=== PATIENT | female | born 1995 | race Two or more races ===

== ENCOUNTER 2024-02-22 08:37 | Outpatient (CLI) | payer OTHER | END 2024-02-22 08:41 | disposition home or self-care (01) | LOC: PRENATAL 08:37 | PROVIDERS: ATTEND Obstetrics & Gynecology Maternal & Fetal Medicine | DX: O26.849 Uterine size-date discrepancy, unspecified trimester (principal); O36.8199 Decreased fetal movements, unspecified trimester, other fetus; O36.60X0 Maternal care for excessive fetal growth, unspecified trimester, not applicable or unspecified; Z3A.32 32 weeks gestation of pregnancy ==

== ENCOUNTER → 2025-01-18 | Outpatient (CLI) | payer OTHER ==
[~2025-01-18] MED LIST: PRENATAL TABLE1 EAC1 PO
== END | disposition home or self-care (01) ==
LOC: PRENATAL 13:31
PROVIDERS: ATTEND Obstetrics & Gynecology Maternal & Fetal Medicine
DX: O44.00 Complete placenta previa NOS or without hemorrhage, unspecified trimester (principal); O26.849 Uterine size-date discrepancy, unspecified trimester; O26.20 Pregnancy care for patient with recurrent pregnancy loss, unspecified trimester; Z3A.20 20 weeks gestation of pregnancy

== ENCOUNTER 2025-03-14 09:04 | Outpatient (CLI) | payer OTHER | END 2025-03-14 10:00 | disposition home or self-care (01) | LOC: PRENATAL 09:04 | PROVIDERS: ATTEND Obstetrics & Gynecology Maternal & Fetal Medicine | DX: O26.849 Uterine size-date discrepancy, unspecified trimester (principal); O36.8199 Decreased fetal movements, unspecified trimester, other fetus; O26.20 Pregnancy care for patient with recurrent pregnancy loss, unspecified trimester; Z3A.27 27 weeks gestation of pregnancy ==

== ENCOUNTER 2025-04-22 15:31 | Outpatient (CLI) | payer OTHER ==
[~2025-04-22] VITALS: Ht 157.5 cm; Wt 83.0 kg
[2025-04-22 15:15] VITALS: BP 106/69
[2025-04-22] MEDS ORDERED: 0.9 % SODIUM CHLORIDE 1,000 ML IV SCH (15:45)
[2025-04-22] MEDS ORDERED: FAMOTIDINE/PF 20 MG/2 ML VIAL IV NR (15:45)
[2025-04-22 16:30] LABS: URINE APPEARANCE Clear; URINE BILIRRUBIN Negative (NEGATIVE); URINE BLOOD Negative; URINE COLOR Yellow; URINE GLUCOSE Negative (NEGATIVE); URINE LEUKOCYTE Negative; URINE NITRATE Negative; URINE PROTEIN 30 (NEGATIVE)
[2025-04-22 16:32] LABS: BASO % 0.2 % (0.1-1.2); EOS # 0.02 (0.04-0.54); EOS % 0.2 % (0.7-7.0); HEMATOCRIT 31.5 % (34.1-44.9); HEMOGLOBIN 10.2 g/dL (11.2-15.7); LYMPH # 0.99 (1.18-3.74); LYMPH % 11.8 % (19.3-53.1); MEAN CORPUSCULAR HEMOGLOBIN 24.8 pg (25.6-32.2); MONO # 0.59 (0.24-0.82); NEUT # 6.64 (1.56-6.13); NEUT % 79.4 % (34.0-71.1); PLATELET COUNT 132 K/uL (163-369); RED BLOOD COUNT 4.11 M/uL (3.93-5.22); RED CELL DISTRIBUTION WIDTH 13.8 % (11.6-14.4)
[2025-04-22 16:34] LABS: URINE BACTERIA 340.2 uL (0.0-1933); URINE RBC 3.3 uL (0.0-20.8)
[2025-04-22 16:58] LABS: URINE KETONE >=160 (NEGATIVE)
[2025-04-22 17:03] LABS: ALBUMIN 2.6 gm/dL (3.4-5.0); BILIRUBIN TOTAL 0.53 mg/dL (0.3-1.2); CALCIUM 7.9 mg/dL (8.5-10.1); CREATININE SERUM 0.47 mg/dL (0.55-1.02); GFR 155.59; GLOBULINA 3.2 G/DL (2.4-3.5); POTASSIUM 3.54 mEq/L (3.5-5.1); TOTAL PROTEIN 5.8 gm/dL (6.4-8.2)
[2025-04-22 20:39] VITALS: BP 99/60
[2025-04-22 23:17] VITALS: BP 98/62
[2025-04-23 03:59] VITALS: BP 103/61
[2025-04-23 07:30] VITALS: BP 95/58
[2025-04-23 12:12] VITALS: BP 100/60
== END 2025-04-23 12:15 | disposition home or self-care (01) ==
LOC: OBS/DEL 15:31
PROVIDERS: Obstetrics & Gynecology; ATTEND Obstetrics & Gynecology
DX: O26.893 Other specified pregnancy related conditions, third trimester (principal); Z3A.34 34 weeks gestation of pregnancy

== ENCOUNTER 2025-04-24 07:36 | Outpatient (CLI) | payer OTHER | END 2025-04-24 07:37 | disposition home or self-care (01) | LOC: PRENATAL 07:36 | PROVIDERS: ATTEND Obstetrics & Gynecology Maternal & Fetal Medicine | DX: O26.849 Uterine size-date discrepancy, unspecified trimester (principal); O36.8199 Decreased fetal movements, unspecified trimester, other fetus; O24.419 Gestational diabetes mellitus in pregnancy, unspecified control; Z3A.33 33 weeks gestation of pregnancy ==

== ENCOUNTER 2025-05-31 08:28 | Inpatient (IN) | payer OTHER ==
[~2025-05-31] VITALS: Ht 157.5 cm; Wt 84.8 kg
[2025-05-31] VITALS (10 sets, daily range): BP systolic 104–120; BP diastolic 49–72
[2025-05-31] MEDS ORDERED: RINGERS SOLUTION,LACTATED 1,000 ML IV SCH (09:00)
[2025-05-31 09:31] LABS: BASO % 0.5 % (0.1-1.2); EOS # 0.06 (0.04-0.54); EOS % 0.6 % (0.7-7.0); LYMPH # 2.16 (1.18-3.74); LYMPH % 21.8 % (19.3-53.1); MEAN PLATELET VOLUME 11.80 fl (9.4-12.4); MONO # 0.50 (0.24-0.82); MONO % 5.0 % (4.7-12.5); NEUT # 7.05 (1.56-6.13); NEUT % 71.2 % (34.0-71.1); RED CELL DISTRIBUTION WIDTH 15.6 % (11.6-14.4)
[2025-05-31 09:37] LABS: URINE APPEARANCE Cloudy; URINE BILIRRUBIN Negative (NEGATIVE); URINE BLOOD Negative; URINE COLOR Yellow; URINE GLUCOSE Negative (NEGATIVE); URINE KETONE Negative (NEGATIVE); URINE LEUKOCYTE Large; URINE NITRATE Negative; URINE PROTEIN 30 (NEGATIVE); URINE UROBILINOGEN 1.0 E.U./dl
[2025-05-31 09:40] LABS: URINE BACTERIA 6817.0 uL (0.0-1933); URINE CAST 1.46 uL (0.0-1.40); URINE EPITHELIAL CELLS 184.1 uL (0.0-38.8); URINE RBC 10.5 uL (0.0-20.8); URINE WBC 218.2 uL (0.0-23.2)
[2025-05-31 09:56] LABS: INR < 0.93
[2025-05-31] MEDS ORDERED: OXYTOCIN 20 UNITS/500ML RL PIGGYBAG IV SCH (12:00)
[2025-05-31] MEDS ORDERED: ACETAMINOPHEN 500 MG GEL..CAP PO PRN (20:00)
[2025-05-31] MEDS ORDERED: OXYTOCIN 1,000 ML IV SCH (20:00)
[2025-05-31] MEDS ORDERED: CHLORHEXIDINE GLUCONATE 120 ML BOTTLE TP SCH (20:00)
[2025-05-31] MEDS ORDERED: LIDOCAINE HCL 1% 10ML VIAL PERCUT ONE (20:15)
[2025-05-31] MEDS ORDERED: ERYTHROMYCIN BASE OPHT 1GM EACH TUBE OP ONE (20:15)
[2025-05-31 21:07] LABS: BASO % 0.2 % (0.1-1.2); EOS # 0.00 (0.04-0.54); EOS % 0.0 % (0.7-7.0); LYMPH # 1.48 (1.18-3.74); LYMPH % 10.4 % (19.3-53.1); MEAN PLATELET VOLUME 12.10 fl (9.4-12.4); MONO # 0.56 (0.24-0.82); MONO % 4.0 % (4.7-12.5); NEUT # 11.98 (1.56-6.13); NEUT % 84.6 % (34.0-71.1); RED CELL DISTRIBUTION WIDTH 15.3 % (11.6-14.4)
[2025-06-01 00:34] VITALS: BP 100/65
[2025-06-01 08:46] VITALS: BP 111/75
[2025-06-01] MEDS ORDERED: PNV,CALCIUM 72/IRON/FOLIC ACID 1 TAB TABLET PO SCH (09:00)
[2025-06-01 16:00] VITALS: BP 118/78
[2025-06-02 00:39] VITALS: BP 118/78
[2025-06-02 08:25] VITALS: BP 116/73; O2SAT 99
== END 2025-06-02 19:00 | disposition home or self-care (01) | DRG 807 ==
LOC: OB/GYN 08:28 → LDR 08:28 → OB/GYN 17:12
PROVIDERS: ADMIT Obstetrics & Gynecology; ATTEND Obstetrics & Gynecology
PROC: 10E0XZZ Delivery of Products of Conception, External Approach (ICD-10-PCS; principal; 2025-05-31)
PROC: 4A1HXCZ Monitoring of Products of Conception, Cardiac Rate, External Approach (ICD-10-PCS; 2025-05-31)
DX: O80 Encounter for full-term uncomplicated delivery (principal); Z37.0 Single live birth; Z3A.39 39 weeks gestation of pregnancy